=== PATIENT | male | born 1980 | race Hispanic/Latino ===

== ENCOUNTER 2020-09-14 18:11 | Emergency (ER) | payer SELFPAY ==
--- OUTSIDE RECORDS SUMMARY | 2020-09-14 18:14 | XMS REPORT | Continuity of Care Document ---
:1980 Author Organization [facility] t Address [address] [place] [address] Care Team Providers Name Role Phone Norma Kaur MD Attending Clinician Doctor Unassigned, Name Attending Clinician Unavailable Problems This patient has no known problems. Allergies, Adverse Reactions, Alerts This patient has no known allergies or adverse reactions. Medications This patient has no known medications. Procedures This patient has no known procedures. Encounters Start End Encounter Admission Attending Care Care Encounter Source Date/Time Date/Time Type Type Clinicians Facility Department ID 2020-07-16 2020-07-17 [facility] [id number] 22:15:00 00:30:00 Norma Grant [id number] [place] [id number] [place] [id number] 2020-07-16 2020-07-16 Orders Doctor WHITAKER [id number] 00:00:00 00:00:00 Only Unassigned, MARCELINA [id number] [place] [facility] [id number] 2020-01-24 2020-01-24 Emergency [facility] [id number] 01:05:00 04:06:00 Norma Bee [place] [id number] [place] [id number] [place] [id number] Results This patient has no known results.
[2020-09-14 19:14] LABS: Absolute Lymphocytes (CBC) 1.6 K/uL (0.7-4.9); Basophils % 0.7 % (0-1.3); Hematocrit 41.8 % (39.6-49.0); Lymphocytes % 33.6 % (15.3-44.8); MPV 7.8 fL (7.6-11.3); Protime INR 1.04; RBC Red Blood Cell Count 4.69 M/uL (4.33-5.43)
[2020-09-14 19:27] LABS: ALT/SGPT 68 U/L (12-78); AST/SGOT 36 U/L (15-37); Albumin 3.9 g/dL (3.4-5.0); Alkaline Phosphatase 62 U/L (45-117); BUN Blood Urea Nitrogen 7 mg/dL (7-18); Bicarbonate 27 mmol/L (21-32); Bilirubin Direct 0.2 mg/dL (0-0.2); Bilirubin Total 0.6 mg/dL (0.2-1.0); Glucose Level 91 mg/dL (74-106); Magnesium 2.1 mg/dL (1.8-2.4); NT PRO-BNP 115 pg/mL (<125); Potassium 3.1 mmol/L (3.5-5.1); Protein, Total 7.4 g/dL (6.4-8.2); Sodium Level 141 mmol/L (136-145); Troponin (Emerg Dept Use Only) < 0.02 ng/mL (0.0-0.045)
--- NOTE | 2020-09-14 19:31 | RAD REPORT ---
EXAM DESCRIPTION: RAD - Chest Single View - 09/14/2020 7:17 pm CLINICAL HISTORY: CHEST PAIN COMPARISON: None TECHNIQUE: AP portable chest image was obtained 09/14/2020 7:17 pm . FINDINGS: Lungs are clear. Heart and vasculature are normal. No measurable pleural effusion and no p neumothorax. No acute bony abnormality seen. No acute aortic findings suspected. IMPRESSION: No acute cardiopulmonary process.
--- NOTE | 2020-09-14 21:13 | RAD REPORT ---
EXAM DESCRIPTION: CT - Chest For Pe Angio - 09/14/2020 8:47 pm CLINICAL HISTORY: CHEST PAIN COMPARISON: Chest Single View dated 09/14/2020 TECHNIQUE: Dynamically enhanced 3 mm thick images of the chest were obtained during administration o f approximately 150mL Isovue 370 IV contrast. Coronal and oblique MIP reconstruction images were gene rated and reviewed. Exam utilizes a protocol to evaluate the pulmonary arterial tree. All CT scans are performed using dose optimization technique as appropriate and may include automated exposure control or mA/KV adjustment according to patient size. FINDINGS: No pulmonary emboli are identified. The aorta as imaged shows no acute or suspicious finding. No pericardial thickening or effusion. No infiltrate or mass in the lung parenchyma. No pleural effusion or pleural thickening. No mediastinal or hilar suspicious masses. No chest wall masses or abnormal axillary lymphadenopathy. IMPRESSION: No pulmonary emboli identified. No other significant or suspicious findings.
[2020-09-14] MEDS ORDERED: ONDANSETRON 4 MG/2 ML VIAL ONE (21:17)
[2020-09-14] MEDS ORDERED: MORPHINE 4 MG/ML SYR ONE (21:17)
[2020-09-14] MEDS ORDERED: KETOROLAC 30 MG/ML INJ ONE (23:22)
[2020-09-14] MEDS ORDERED: MAGNES/ALUMIN/SIMET 30ML UCUP ONE (23:26)
[2020-09-14] MEDS ORDERED: LIDOCAINE VISCOUS 2% SOLN 15 ML UDC ONE (23:26)
[2020-09-15] MEDS ORDERED: DIAZEPAM 10 MG/2 ML INJ SYRINGE ONE (00:14)
[2020-09-15] MEDS ORDERED: dexAMETHasone 4 MG/ML VIAL ONE (01:36)
--- NOTE | 2020-09-15 08:00 | EKG ---
Test Date: 2020-09-14 Test Time: 19:03:47 Sonography Technician: AMBROSE MEASUREMENT RESULTS: Intervals: Rate: 77 IA: 152 QRSD: 86 QT: 364 QTc: 411 [place]: P: 40 IA: 152 QRS: 42 T: 22 INTERPRETIVE STATEMENTS: Normal sinus rhythm Nonspecific T wave abnormality Abnormal ECG No previous ECG available for comparison Electronically Signed On 09-15-20 07:57:42 CDT by Anthony Kumar
--- NOTE | 2020-09-15 12:38 | EKG ---
Test Date: 2020-09-14 Test Time: 23:03:20 Manager Of Data: LEROY MEASUREMENT RESULTS: Intervals: Rate: 76 HI: 152 QRSD: 86 QT: 376 QTc: 423 [place]: P: 51 HI: 152 QRS: 87 T: 27 INTERPRETIVE STATEMENTS: Normal sinus rhythm Nonspecific T wave abnormality Abnormal ECG Compared to ECG 09/14/2020 19:03:47 No significant changes Electronically Signed On 09-15-20 12:37:34 CDT by Anthony Kumar
--- NOTE | 2020-09-15 17:47 | ER ---
Nurse's Notes [facility] Name: Balta Mtz Age: 39 yrs Sex: Male : 1980 Arrival Date: 09/14/2020 Time: 18:14 Bed 30 Private MD: Diagnosis: Chest pain, unspecified Presentation: 09/14 18:16 Chief complaint: Patient states: CP starting at 06:00 while pt was lying in bed. Pt kg stated that he was up all night tattooing and drinking and started having chest pain and it went away slightly then came back. Pt stated he has not been asleep yet. Coronavirus screen: Client denies travel out of the [place] in the last 14 days. At this time, unable to obtain information related to travel outside the [place] At this time, the client does not indicate any symptoms associated with coronavirus-19. Ebola Screen: Patient negative for fever greater than or equal to 101.5 degrees Fahrenheit, and additional compatible Ebola Virus Disease symptoms Patient denies exposure to infectious person. Patient denies travel to an Ebola-affected area in the 21 days before illness onset. Initial Sepsis Screen: Does the patient meet any 2 criteria? No. Patient's initial sepsis screen is negative. Does the patient have a suspected source of infection? No. Patient's initial sepsis screen is negative. Risk Assessment: Do you want to hurt yourself or someone else? Patient reports no desire to harm self or others. Onset of symptoms was September 14, 2020 at 06:00. 18:16 Method Of Arrival: Ambulatory kg 18:16 Acuity: GUILLERMINA 3 kg Triage Assessment: 18:19 General: Appears in no apparent distress. Behavior is calm, cooperative, appropriate kg for age, quiet. Pain: Complains of pain in chest Pain radiates to epigastric, left arm, left back Pain Quality of pain is described as burning, aching. Cardiovascular: Heart tones S1 S2 Chest pain is described as diffuse, Pain is 8 out of 10 on a pain scale. quality is burning. Historical: - Allergies: 18:19 No Known Allergies; kg - Home Meds: 18:19 None [Active]; kg - PMHx: 18:19 Anxiety; kg - PSHx: 18:19 back sx; kg - Immunization history:: Adult Immunizations not up to date, Client reports having NOT received the Covid vaccine. - Social history:: Smoking status: Patient denies any tobacco usage or history of. Patient uses alcohol, weekly. Patient uses street drugs, cocaine, Methamphetamine (Meth). Screenin:46 Abuse screen: Denies threats or abuse. Denies injuries from another. Nutritional ld1 screening: No deficits noted. Tuberculosis screening: No symptoms or risk factors identified. Fall Risk None identified. Assessment: 18:46 General: Appears in no apparent distress. comfortable, Behavior is calm, cooperative, ld1 appropriate for age. Pain: Complains of pain in chest Pain does not radiate. Pain currently is 8 out of 10 on a pain scale. Quality of pain is described as throbbing, Pain began 4 hours ago. Is continuous. Neuro: Level of Consciousness is awake, alert, obeys commands, Oriented to person, place, time, situation. Cardiovascular: Capillary refill < 3 seconds Patient's skin is warm and dry. Rhythm is sinus rhythm. Respiratory: Airway is patent Respiratory effort is even, unlabored, Respiratory pattern is regular, symmetrical. GI: Abdomen is flat, non-distended. : No signs and/or symptoms were reported regarding the genitourinary system. EENT: No signs and/or symptoms were reported regarding the EENT system. Derm: No signs and/or symptoms reported regarding the dermatologic system. Musculoskeletal: No signs and/or symptoms reported regarding the musculoskeletal system. 20:36 Reassessment: Patient appears in no apparent distress at this time. No changes from ld1 previously documented assessment. Patient and/or family updated on plan of care and expected duration. Pain level reassessed. Patient is alert, oriented x 3, equal unlabored respirations, skin warm/dry/pink. 21:39 Reassessment: Patient appears in no apparent distress at this time. No changes from ld1 previously documented assessment. Patient and/or family updated on plan of care and expected duration. Pain level reassessed. Patient is alert, oriented x 3, equal unlabored respirations, skin warm/dry/pink. 23:07 Reassessment: Patient appears in no apparent distress at this time. Patient and/or ld1 family updated on plan of care and expected duration. Pain level reassessed. Patient is alert, oriented x 3, equal unlabored respirations, skin warm/dry/pink. Vital Signs: 18:16 BP 138 / 101; Pulse 92; Resp 20; Temp 98.1(TE); Pulse Ox 100% on R/A; Weight 87.09 kg kg (M); Height 5 ft. 9 in. (175.26 cm); Pain 8/10; 18:46 BP 146 / 100; Pulse 79; Resp 15; Pulse Ox 100% on R/A; ld1 20:36 BP 144 / 96; Pulse 80; Resp 25; Pulse Ox 100% on R/A; ld1 21:39 BP 146 / 89; Pulse 82; Resp 18; Pulse Ox 100% on R/A; ld1 23:07 BP 138 / 88; Pulse 78; Resp 18; Pulse Ox 100% ; ld1 18:16 Body Mass Index 28.35 (87.09 kg, 175.26 cm) kg ED Course: 18:14 Patient arrived in ED. mr 18:19 Triage completed. kg 18:22 Josh Dela Cruz PA is PHCP. [facility] 18:23 Tim Adam MD is Attending Physician. [facility] 18:28 Lo Gan, FERNY is Primary Nurse. ld1 18:46 Patient has correct armband on for positive identification. Bed in low position. Call ld1 light in reach. Side rails up X2. front end software developer on. Pulse ox on. NIBP on. 18:46 No provider procedures requiring assistance completed. ld1 19:06 Inserted saline lock: 20 gauge in right antecubital area, using aseptic technique. ld1 Blood collected. Patient maintains SpO2 saturation greater than 95% on room air. 19:17 XRAY Chest (1 view) In Process Unspecified. EDMS 20:47 CT Chest For PE Angio In Process Unspecified. EDMS 09/15 00:58 Jovani Mcrae MD is Referral Physician. jm 01:23 IV discontinued, intact, bleeding controlled, No redness/swelling at site. Pressure em dressing applied. Administered Medications: 09/14 21:03 Drug: morphine 4 mg Route: IVP; Site: right antecubital; ld1 21:03 Follow up: Response: No adverse reaction ld1 21:03 Drug: Zofran (Ondansetron) 4 mg Route: IVP; Site: right antecubital; ld1 21:03 Follow up: Response: No adverse reaction ld1 23:02 Drug: Ketorolac 30 mg Route: IVP; Site: right antecubital; ld1 23:07 Follow up: Response: No adverse reaction ld1 23:06 Drug: GI Cocktail without - (Maalox Suspension 30 ml, Lidocaine Liquid 2 % 15 ld1 ml) Route: PO; 23:07 Follow up: Response: No adverse reaction ld1 23:57 Drug: Valium (diazepam) 5 mg Route: IVP; Site: right antecubital; ld1 23:57 Follow up: Response: No adverse reaction ld1 09/15 01:20 Drug: Decadron - Dexamethasone 10 mg Route: IVP; Site: right antecubital; em 01:24 Follow up: Response: Medication administered at discharge. em Outcome: 00:58 Discharge ordered by . brennan 01:22 Discharged to home ambulatory, with family. em 01:22 Condition: stable 01:22 Discharge instructions given to patient, Instructed on discharge instructions, follow up and referral plans. medication usage, Demonstrated understanding of instructions, follow-up care, medications, Prescriptions given X 1. 01:42 Patient left the ED. mw2 Signatures: Dispatcher [employer] EDMS Josh Dela Cruz PA PA Hazel Manuel mr Kem Pruitt RN RN Leida Wallace mw2 Lo Gan RN RN ld1 Cinda Cruz RN RN kg
--- NOTE | 2020-09-15 17:47 | EDPHYS ---
Physician Documentation [facility] Name: Balta Mtz Age: 39 yrs Sex: Male : 1980 Arrival Date: 09/14/2020 Time: 18:14 Bed 30 Private MD: ED Physician Tim Adam HPI: 09/14 18:45 This 39 yrs old Male presents to ER via Ambulatory with complaints of Chest jmm Pain. 18:45 The patient or guardian reports chest pain that is located primarily in the substernal m area. Onset: gradually, at 06:00. The pain does not radiate. Associated signs and symptoms: Pertinent positives:. The chest pain is described as aching, a pressure, sharp. This is a 39-year-old male with a history of anxiety that presents emerged part with complaints of chest pain, chest pressure worsening with deep inspiration. Symptoms began at 6 AM and have been constant since per patient. Patient states having a family history of coronary artery disease. Patient does not smoke but drinks alcohol regularly.. Historical: - Allergies: 18:19 No Known Allergies; kg - Home Meds: 18:19 None [Active]; kg - PMHx: 18:19 Anxiety; kg - PSHx: 18:19 back sx; kg - Immunization history:: Adult Immunizations not up to date, Client reports having NOT received the Covid vaccine. - Social history:: Smoking status: Patient denies any tobacco usage or history of. Patient uses alcohol, weekly. Patient uses street drugs, cocaine, Methamphetamine (Meth). ROS: 18:45 Constitutional: Negative for fever, chills, and weight loss. jmm 18:45 Cardiovascular: Positive for chest pain. 18:45 All other systems are negative. Exam: 18:45 Head/Face: atraumatic. Eyes: EOMI, no conjunctival erythema appreciated ENT: Moist jmm Mucus Membranes Neck: Trachea midline, Supple Chest/axilla: Normal chest wall appearance and motion. Cardiovascular: Regular rate and rhythm. No edema appreciated Respiratory: Normal respirations, no respiratory distress appreciated Abdomen/GI: Non distended, soft Back: Normal ROM 18:45 Skin: General appearance color normal MS/ Extremity: Moves all extremities, no obvious deformities appreciated, no edema noted to the lower extremities Neuro: Awake and alert, normal gait Psych: Behavior is normal, Mood is normal, Patient is cooperative and pleasant 18:45 Constitutional: The patient appears alert, awake, anxious, uncomfortable. 18:45 Cardiovascular: Rate: normal, Rhythm: regular. Vital Signs: 18:16 BP 138 / 101; Pulse 92; Resp 20; Temp 98.1(TE); Pulse Ox 100% on R/A; Weight 87.09 kg kg (M); Height 5 ft. 9 in. (175.26 cm); Pain 8/10; 18:46 BP 146 / 100; Pulse 79; Resp 15; Pulse Ox 100% on R/A; ld1 20:36 BP 144 / 96; Pulse 80; Resp 25; Pulse Ox 100% on R/A; ld1 21:39 BP 146 / 89; Pulse 82; Resp 18; Pulse Ox 100% on R/A; ld1 23:07 BP 138 / 88; Pulse 78; Resp 18; Pulse Ox 100% ; ld1 18:16 Body Mass Index 28.35 (87.09 kg, 175.26 cm) kg MDM: 19:13 Patient medically screened. [facility] 09/15 00:56 Data reviewed: vital signs, nurses notes. Counseling: I had a detailed discussion with [facility] the patient and/or guardian regarding: the historical points, exam findings, and any diagnostic results supporting the discharge/admit diagnosis, lab results, radiology results, the need for outpatient follow up, to return to the emergency department if symptoms worsen or persist or if there are any questions or concerns that arise at home. ED course: Cardiac enzymes are negative after constant pain for over 12 hours. CTA negative for PE. Pulses equal I do not suspect dissection. Patient's pain was alleviated mainly with IV Valium. Patient declined admission for observation. Patient is otherwise given strict return precautions. Patient understood and agrees with plan of care.. 09/14 18:45 Order name: Basic Metabolic Panel; Complete Time: 19:33 [facility] 09/14 18:45 Order name: CBC with Diff; Complete Time: 19:23 [facility] 09/14 18:45 Order name: LFT's; Complete Time: 19:33 [facility] 09/14 18:45 Order name: Magnesium; Complete Time: 19:33 [facility] 09/14 18:45 Order name: NT PRO-BNP; Complete Time: 19:33 [facility] 09/14 18:45 Order name: PT-INR; Complete Time: 19:23 [facility] 09/14 18:45 Order name: Troponin (emerg Dept Use Only); Complete Time: 19:33 [facility] 09/14 18:45 Order name: XRAY Chest (1 view); Complete Time: 19:33 [facility] 09/14 20:27 Order name: CT Chest For PE Angio; Complete Time: 21:14 [facility] 09/14 22:42 Order name: Troponin (emerg Dept Use Only); Complete Time: 23:38 [facility] 09/14 18:45 Order name: EKG; Complete Time: 18:46 [facility] 09/14 18:45 Order name: Cardiac monitoring; Complete Time: 18:45 [facility] 09/14 18:45 Order name: EKG - Nurse/Tech; Complete Time: 19:05 [facility] 09/14 18:45 Order name: IV Saline Lock; Complete Time: 19:05 [facility] 09/14 18:45 Order name: Labs collected and sent; Complete Time: 19:05 [facility] 09/14 18:45 Order name: O2 Per Protocol; Complete Time: 18:45 [facility] 09/14 18:45 Order name: O2 Sat Monitoring; Complete Time: 18:45 [facility] 09/14 22:56 Order name: EKG - Nurse/Tech; Complete Time: 23:02 [facility] Administered Medications: 09/14 21:03 Drug: morphine 4 mg Route: IVP; Site: right antecubital; ld1 21:03 Follow up: Response: No adverse reaction ld1 21:03 Drug: Zofran (Ondansetron) 4 mg Route: IVP; Site: right antecubital; ld1 21:03 Follow up: Response: No adverse reaction ld1 23:02 Drug: Ketorolac 30 mg Route: IVP; Site: right antecubital; ld1 23:07 Follow up: Response: No adverse reaction ld1 23:06 Drug: GI Cocktail without - (Maalox Suspension 30 ml, Lidocaine Liquid 2 % 15 ld1 ml) Route: PO; 23:07 Follow up: Response: No adverse reaction ld1 23:57 Drug: Valium (diazepam) 5 mg Route: IVP; Site: right antecubital; ld1 23:57 Follow up: Response: No adverse reaction 09/15 01:20 Drug: Decadron - Dexamethasone 10 mg Route: IVP; Site: right antecubital; em 01:24 Follow up: Response: Medication administered at discharge. em Disposition: 06:04 Co-signature as Attending Physician, Tim Adam MD. rn Disposition Summary: 09/15/20 00:58 Discharge Ordered Location: Home [facility] Condition: Stable jmm Diagnosis - Chest pain, unspecified jmm Followup: [facility] - With: Jovani Mcrae MD - When: 2 - 3 days - Reason: Recheck today's complaints, Continuance of care, Re-evaluation by your physician Discharge Instructions: - Discharge Summary Sheet [facility] - Nonspecific Chest Pain, Adult [facility] Forms: - Medication Reconciliation Form [facility] - Thank You Letter [facility] - Antibiotic Education [facility] - Prescription Opioid Use [facility] Prescriptions: - orphenadrine citrate 100 mg Oral Tablet Sustained Release - take 1 tablet by ORAL route 2 times per day As needed; 20 tablet; Refills: 0, [facility] Product Selection Permitted Signatures: Dispatcher [employer] Josh Thurman PA PA jmm Munoz, Edgar, RN RN em Tim Adam MD MD rn Dibbern, Lauren RN RN ld1 Cinda Cruz RN RN kg
[2020-09-16 16:57] VITALS: TEMP 98.1; O2SAT 100
[2020-09-16 17:04] VITALS: BP 138/88
== END 2020-09-15 01:42 | disposition home or self-care (01) ==
LOC: ER 18:11
DX: R07.9 Chest pain, unspecified (principal); F41.9 Anxiety disorder, unspecified; Z82.49 Family history of ischemic heart disease and other diseases of the circulatory system
CPT/HCPCS: 36415; 71045; 71275; 80048; 80076; 83735; 83880; 84484; 85025; 85610; 93005; J1100; J2405; Q9967

== ENCOUNTER 2024-04-22 02:04 | Emergency (ER) | payer SELFPAY ==
--- OUTSIDE RECORDS SUMMARY | 2024-04-22 02:09 | XMS REPORT | Continuity of Care Document ---
Author Name Unknown Address [address] [facility] [address] [place] [address] [facility] thconnect Address [address] [facility] [address] [place] [address] Care Team Providers Care Tax Staff Accountant Name Role Phone PCP, PATIENT DOES NOT HAVE A Primary Care Physic stepan Unavailable Norma Hoffman MD Attending Clinician NORMA HOFFMAN Attending Clinician Unavailable Doctor Unassigned, Merlin Attending Clinician U navailable NORMA HOFFMAN Admitting Clinician Unavailable Allergies, Adverse Reactions, Alerts Allergy Name Allergy Type Status Severity Reaction(s) Onset Date Inactive Date Treating Clinician Comments Source NO KNOWN ALLERGIE S Drug Class Active [facility] Social History Social Habit Start Date Stop Date Quantity Comments Source Exposure to SARS-CoV-2 (event) Not sure [facility] Sex Assigned At 1980 00:00:00 1980 00:00:00 [facility] Smoking Status Start Date Stop Date Source Unknown if ever smoked [facility] Vital Signs Vital Name Observation Time Observation Value Comments S carla Systolic blood pressure 2020-07-17 05:00:00 114 mm[Hg] [facility] Diastolic blood pressure 2020-07-17 05:00:00 74 mm[Hg] [facility] Heart rate 2020-07-17 05:00:00 78 /min [facility] Respiratory rate 2020-07-17 05:00:00 21 /min [facility] Oxygen saturation in Arterial blood by Pulse oximetry 2020-07-17 05:00:00 98 /min [facility] Body temperature 2020-07-17 03:19:00 36.67 Erum [facility] Body height 2020-07-17 03:19:00 175.3 cm [facility] Body weight 2020-07-17 03:19:00 90.719 kg [facility] BMI 2020-07-17 03:19:00 29.53 kg/m2 [facility] Systolic blood pressure 2020-07-17 05:00:00 114 mm[Hg] [facility] Diastolic blood pressure 2020-07-17 05:00:00 74 mm[Hg] [facility] Heart rate 2020-07-17 05:00:00 78 /min [facility] Respiratory rate 2020-07-17 05:00:00 21 /min [facility] Oxygen saturation in Arterial blood by Pulse oximetry 2020-07-17 05:00:00 98 /min [facility] Body temperature 2020-07-17 03:19:00 36.67 Erum [facility] Body height 2020-07-17 03:19:00 175.3 cm [facility] Body weight 2020-07-17 03:19:00 90.719 kg [facility] BMI 2020-07-17 03:19:00 29.53 kg/m2 [facility] Systolic blood pressure 2020-01-24 09:00:00 116 mm[Hg] [facility] Diastolic blood pressure 2020-01-24 09:00:00 75 mm[Hg] [facility] Heart rate 2020-01-24 09:00:00 52 [facility] 2020-01-24 09:00:00 16 /min [facility] Oxygen saturation in Arterial blood by Pulse oximetry 2020-01-24 09:00:00 98 /min [facility] Body temperature 2020-01-24 07:10:00 37.22 Erum [facility] Body height 2020-01-24 07:10:00 175.3 cm [facility] Body weight 2020-01-24 07:10:00 90.719 kg [facility] BMI 2020-01-24 07:10:00 29.53 kg/m2 [facility] Systolic blood pressure 2020-01-24 09:00:00 116 mm[Hg] [facility] Diastolic blood pressure 2020-01-24 09:00:00 75 mm[Hg] [facility] Heart rate 2020-01-24 09:00:00 52 /min [facility] Respiratory rate 2020-01-24 09:00:00 16 /min [facility] Oxygen saturation in Arterial blood by Pulse oximetry 2020-01-24 09:00:00 98 /min [facility] Body temperature 2020-01-24 07:10:00 37.22 E[place] [facility] Body height 2020-01-24 07:10:00 175.3 cm [facility] Body weight 2020-01-24 07:10:00 90.719 kg [facility] BMI 2020-01-24 07:10:00 29.53 kg/m2 [facility] Procedures Procedure Date / Time Performed Performing Clinicia n Source XR CHEST 1 VW 2020-07-17 03:41:09 Norma Hoffman [facility] LIPASE 2020-07-17 03:31:00 Norma Hoffman [facility] TROPONIN I 2020-07-17 03:31:00 Norma Hoffman [facility] COMP. METABOLIC PANEL ([id number]) 2020-07-17 03:31:00 Norma Hoffman [facility] CBC WITH DIFF 2020-07-17 03:31:00 Norma Hoffman [facility] CONSENT/REFUSAL FOR DIAGNOSIS AND TREATMENT 2020-07-17 03:11:05 Doctor Unassigned, Merlin [facility] NOTICE OF PRIVACY PRACTICES 2020-07-17 03:10:49 Doctor Unassigned, Merlin [facility] TROPONIN I 2020-01-24 09:01:00 Norma Hoffman [facility] XR CHEST 1 VW 2020-01-24 07:43:35 Norma Hoffman [facility] LIPASE 2020-01-24 07:27:00 Norma Hoffman [facility] TROPONIN I 2020-01-24 [facility]OLIC [facility] ([id number]) 2020-01-24 07:27:00 Norma Hoffman [facility] CBC WITH DIFF 2020-01-24 07:27:00 Norma Hoffman [facility] Encounters Start Date/Time End Date/Time Encounter Type Admission Type Attending Clinicians Care Facility Care Department Encounter ID Source 2020-07-16 22:15:00 2020-07-17 00:30:00 Emergency Norma Hoffman [facility] [id number] [facility] 2020-07-16 22:15:00 2020-07-17 00:30:00 Emergency X NORMA HOFFMAN [facility] ERT [id number] [facility] 2020-07-16 22:15:00 2020-07-17 00:30:00 Emergency Norma Hoffman [facility] [id number] [id number] 2020-07-16 00:00:00 2020-07-16 00:00:00 Orders Only Doctor Unassigned, Merlin [facility] [id number] [id number] [facility] 2020-07-16 00:00:00 2020-07-16 00:00:00 Orders Only Doctor Unassigned, Merlin [facility] [id number] [id number] 4.2.7.2.686 [id number] 2020-01-24 01:05:00 2020-01-24 04:06:00 Emergency Norma Hoffman [facility] [id number] [id number] [facility] 2020-01-24 01:05:00 2020-01-24 04:06:00 Emergency X NORMA HOFFMAN [facility] ERT [id number] [facility] 2020-01-24 01:05:00 2020-01-24 04:06:00 [facility] [id number] [id number] [id number] Results Test Description Test Time Test Comments Results Result Co mments Source [facility] ([id number][facility]2020-07-17 03:53:29* Test Item Value Reference Range Interpretation Comme nts NA (test code = 8156543268) 138 mmol/L 135-145 K (test code = 0072707111) 3.9 mmol/L 3.5-5.0 CL (test code = 2537552732) 105 mmol/L 98-108 CO2 TOTAL (test code = 0402040506) 24 mmol/L 23-31 AGAP (test code = 4721202475) 2-16 BUN (test code = 0179191800) 14 mg/dL 7-23 GLUCOSE (test code = 3561868407) 114 mg/dL 70-110 H CREATININE (test code = 9120335851) 1.10 mg/dL 0.60-1.25 TOTAL BILI (test code = 3906663024) 0.5 mg/dL 0.1-1.1 CALCIUM (test code = 6259480530) 8.6 mg/dL 8.6-10.6 T PROTEIN (test code = 9371611214) 7.4 g/dL 6.3-8.2 ALBUMIN (test code = 8908120759) 4.3 g/dL 3.5-5.0 ALK PHOS (test code = 5931094095) 80 U/L 34-122 ALTv (test code = 1742-6) 36 U/L 5-50 AST(SGOT) (test code = 8899046100) 38 U/L 13-40 eGFR (test code = 7632574539) mL/min/1.73m2 CARISA (test code = CARISA) Association of Glomerular Filtration Rate (GFR) and Staging of Kidney Disease* + --+ --+ ------+| GFR (mL/min/1.73 m2) ?| With Kidney Damage ?| ?Without Kidney Damage+ --------+ --------+ +| ?>90 ?| ?Stage one ?| ? Normal ?+ ---+ ---+ -------+| ?60-89 ?| ?Stage two ?| ? Decreased GFR ? + --+ --+ ------+| ?30-59 ?| ?Stage three ?| ? Stage three ? + --+ --+ ------+| ?15-29 ?| ?Stage four ? | ? Stage four ?+ ---+ ---+ -------+| ?<15 (or dialysis) ? ?| ?Stage five ? | ? Stage five ?+ ---+ ---+ -------+ *Each stage assumes the associated GFR level has been in effect for at least three months. ?Stages 1 to 5, with or without kidney disease, indicate chronic kidney disease. Notes: Determination of stages one and two (with eGFR >59mL/min/1.73 m2) requires estimation of kidney damage for at least three months as defined by structural or functional abnormalities of the kidney, manifested by either:Pathological abnormalities or Markers of kidney damage (including abnormalities in the composition of the blood or urine or abnormalities in imaging tests). Lab Interpretation (test code = 81593-1) [id number] 03:52:49* Test Item Value Reference Range Interpretation Comme nts LIPASE (test code = 3940072409) 99 U/L 0-220 Lab Interpretation (test cod e = 80804-4) [facility] [id number] 03:41:26* Test Item Value Reference Range Interpretation Comme nts WBC (test code = 6690-2) See_Comment [Automated messa ge] The system which generated this result transmitted reference range: 4.20 - 10.70 10*3/?L. The reference range was not used to interpret this result as normal/abnormal. RBC (test code = 789-8) See_Comment [Automated [employer]] The system which generated this result transmitted reference range: 4.26 - 5.52 10*6/?L. The reference range was not used to interpret this result as normal/abnormal. HGB (test code = 718-7) 14.3 g/dL 12.2-16.4 HCT (test code = 4544-3) 41.0 % 38.4-49.3 MCV (test code = 787-2) 87.8 fL 81.7-95.6 MCH (test code = 785-6) 30.6 pg 26.1-32.7 MCHC (test code = 786-4) 34.9 g/dL 31.2-35.0 RDW-SD (test code = 25001-6) 37.9 fL 38.5-51.6 L RDW-CV (test code = 788-0) 11.9 % 12.1-15.4 L PLT (test code = 777-3) See_Comment [Automated [employer]] The system which generated this result transmitted reference range: 150 - 328 10*3/?L. The reference range was not used to interpret this result as normal/abnormal. MPV (test code = 40666-9) 10.0 fL 9.8-13.0 NRBC/100 WBC (test code = 4173558495) See_Comment [Automated [employer] ssage] The system which generated this result transmitted reference range: 0.0 - 10.0 /100 WBCs. The reference range was not used to interpret this result as normal/abnormal. NRBC x10^3 (test code = 6303860377) <0.01 See_Comment [Automated [employer]] The system which generated this result transmitted reference range: 10*3/?L. The reference range was not used to interpret this result as normal/abnormal. GRAN MAT (NEUT) % (test code = 770-8) 57.2 % IMM GRAN % (test code = 4825831577) 0.20 % LYMPH % (test code = 736-9) 28.4 % MONO % (test code = 5905-5) 9.2 % EOS % (test code = 713-8) 4.1 % BASO % (test code = 706-2) 0.9 % GRAN MAT x10^3(ANC) (test code = 6961596592) 3.22 10*3/uL 1.99-6.95 IMM GRAN x10^3 (test code = 1468335133) <0.03 0.00-0.06 LYMPH x10^3 (test code = 731-0) 1.60 10*3/uL 1.09-3.23 MONO x10^3 (test code = 742-7) 0.52 10*3/uL 0.36-1.02 EOS x10^3 (test code = 711-2) 0.23 10*3/uL 0.06-0.53 BASO x10^3 (test code = 704-7) 0.05 10*3/uL 0.01-0.09 Lab Interpretation (test code = 26354-4) Abnormal [facility] [id number] 09:54:00* Test Item Value Reference Range Interpretation Comme nts TROPONIN I (test code = 0852999879) <0.012 See_Comment [Automated message] The system which generated this result transmitted reference range: <=0.034 ng/mL. The reference range was not used to interpret this result as normal/abnormal. CARISA (test code = CARISA) Equal or Less than 0.034 ng/ml---Normal ?Note: Cardiac troponin begins to rise 3-4 hours after the onset of ischemia. Repeat in 4-6 hours if the sample was drawn within 3-4 hours of the onset of the symptom and found normal. Between 0.035 and 0.120 ng/mL--- Borderline. Questionable myocardial injury or necrosis ? ?Note: Serial measurement may be necessary to confirm or exclude the diagnosis of myocardial injury or necrosis; Clinical correlation (symptoms, EKGs, imaging studies, and others) required; Repeat in 4-6 hours if clinically indicated. ? Equal or Higher than 0.121 ng/mL---Abnormal. Myocardial Injury or Necrosis Likely ? Biotin has been reported to cause a negative bias, interpret results relative to patient's use of biotin. ? Lab Interpretation (test code = 13416-6) [facility] [id number] 08:00:00* Test Item Value Reference Range Interpretation Comme nts TROPONIN I (test code = 3065367447) <0.012 See_Comment [Automated message] The system which generated this result transmitted reference range: <=0.034 ng/mL. The reference range was not used to interpret this result as normal/abnormal. CARISA (test code = CARISA) Equal or Less than 0.034 ng/ml---Normal ?Note: Cardiac troponin begins to rise 3-4 hours after the onset of ischemia. Repeat in 4-6 hours if the sample was drawn within 3-4 hours of the onset of the symptom and found normal. Between 0.035 and 0.120 ng/mL--- Borderline. Questionable myocardial injury or necrosis ? ?Note: Serial measurement may be necessary to confirm or exclude the diagnosis of myocardial injury or necrosis; Clinical correlation (symptoms, EKGs, imaging studies, and others) required; Repeat in 4-6 hours if clinically indicated. ? Equal or Higher than 0.121 ng/mL---Abnormal. Myocardial Injury or Necrosis Likely ? Biotin has been reported to cause a negative bias, interpret results relative to patient's use of biotin. ? Lab Interpretation (test code = 11407-4) [facility] (32580[facility]2020-01-24 07:50:00* Test Item Value Reference Range Interpretation Comme nts NA (test code = 7954609859) 135 mmol/L 135-145 K (test code = 3709146280) 3.9 mmol/L 3.5-5 CL (test code = 9700939035) 102 mmol/L 98-108 CO2 TOTAL (test code = 3199450327) 28 mmol/L 23-31 AGAP (test code = 9865987585) 2-16 BUN (test code = 5029063919) 20 mg/dL 7-23 GLUCOSE (test code = 5373857349) 124 mg/dL 70-110 H CREATININE (test code = 2793407697) 1.01 mg/dL 0.6-1.25 TOTAL BILI (test code = 5396230002) 0.4 mg/dL 0.1-1.1 CALCIUM (test code = 6364451651) 8.8 mg/dL 8.6-10.6 T PROTEIN (test code = 2228906835) 7.0 g/dL 6.3-8.2 ALBUMIN (test code = 4307528101) 4.0 g/dL 3.5-5 ALK PHOS (test code = 6000761931) 96 U/L 34-122 ALTv (test code = 1742-6) 55 U/L 5-50 H AST(SGOT) (test code = 8743101604) 41 U/L 13-40 H eGFR Calculation (Non-) (test code = 5503540269) mL/min/1.73m2 eGFR Calculation () (test code = 2889941492) mL/min/1.73m2 CARISA (test code = CARISA) Association of Glomerular Filtration Rate (GFR) and Staging of Kidney Disease* + --+ --+ ------+| GFR (mL/min/1.73 m2) ?| With Kidney Damage ?| ?Without Kidney Damage+ --------+ --------+ +| ?>90 ?| ?Stage one ?| ? Normal ?+ ---+ ---+ -------+| ?60-89 ?| ?Stage two ?| ? Decreased GFR ? + --+ --+ ------+| ?30-59 ?| ?Stage three ?| ? Stage three ? + --+ --+ ------+| ?15-29 ?| ?Stage four ? | ? Stage four ?+ ---+ ---+ -------+| ?<15 (or dialysis) ? ?| ?Stage five ? | ? Stage five ?+ ---+ ---+ -------+ *Each stage assumes the associated GFR level has been in effect for at least three months. ?Stages 1 to 5, with or without kidney disease, indicate chronic kidney disease. Notes: Determination of stages one and two (with eGFR >59mL/min/1.73 m2) requires estimation of kidney damage for at least three months as defined by structural or functional abnormalities of the kidney, manifested by either:Pathological abnormalities or Markers of kidney damage (including abnormalities in the composition of the blood or urine or abnormalities in imaging tests). Lab Interpretation (test code = 75181-8) [facility] 07:50:00* Test Item Value Reference Range Interpretation Comme nts LIPASE (test code = 6326963132) 113 U/L 0-220 Lab Interpretation (test cod e = 18257-3) [facility] [id number] 07:35:00* Test Item Value Reference Range Interpretation Comme nts WBC (test code = 6690-2) See_Comment [Automated [employer]] The system which generated this result transmitted reference range: 4.20 - 10.70 10*3/?L. The reference range was not used to interpret this result as normal/abnormal. RBC (test code = 789-8) See_Comment [Automated [employer]] The system which generated this result transmitted reference range: 4.26 - 5.52 10*6/?L. The reference range was not used to interpret this result as normal/abnormal. HGB (test code = 718-7) 14.1 g/dL 12.2-16.4 HCT (test code = 4544-3) 41.6 % 38.4-49.3 MCV (test code = 787-2) 89.8 fL 81.7-95.6 MCH (test code = 785-6) 30.5 pg 26.1-32.7 MCHC (test code = 786-4) 33.9 g/dL 31.2-35 RDW-SD (test code = 51369-4) 38.5 fL 38.5-51.6 RDW-CV (test code = 788-0) 11.9 % 12.1-15.4 L PLT (test code = 777-3) See_Comment [Automated [employer]] The system which generated this result transmitted reference range: 150 - 328 10*3/?L. The reference range was not used to interpret this result as normal/abnormal. MPV (test code = 95116-4) 10.0 fL 9.8-13 NRBC/100 WBC (test code = 2464941833) See_Comment [Automated me ssage] The system which generated this result transmitted reference range: 0.0 - 10.0 /100 WBCs. The reference range was not used to interpret this result as normal/abnormal. NRBC x10^3 (test code = 0773883038) <0.01 See_Comment [Automated messa ge] The system which generated this result transmitted reference range: 10*3/?L. The reference range was not used to interpret this result as normal/abnormal. GRAN MAT (NEUT) % (test code = 770-8) 64.3 % IMM GRAN % (test code = 8738576608) 0.70 % LYMPH % (test code = 736-9) 25.7 % MONO % (test code = 5905-5) 6.9 % EOS % (test code = 713-8) 1.7 % BASO % (test code = 706-2) 0.7 % GRAN MAT x10^3(ANC) (test code = 2099957293) 3.47 10*3/uL 1.99-6.95 IMM GRAN x10^3 (test code = 4865792187) 0.04 10*3/uL 0-0.06 LYMPH x10^3 (test code = 731-0) 1.39 10*3/uL 1.09-3.23 MONO x10^3 (test code = 742-7) 0.37 10*3/uL 0.36-1.02 EOS x10^3 (test code = 711-2) 0.09 10*3/uL 0.06-0.53 BASO x10^3 (test code = 704-7) 0.04 10*3/uL 0.01-0.09 Lab Interpretation (test code = 10269-3) Abnormal [facility]"
[2024-04-22] MEDS ORDERED: PANTOPRAZOLE 40 MG INJ ONE (02:37)
[2024-04-22] MEDS ORDERED: NA CHLORIDE 0.9% 1,000 ML ONE (02:37)
[2024-04-22 02:51] LABS: Absolute Lymphocytes (CBC) 0.7 K/uL (0.7-4.9); Absolute Monocytes 0.5 K/uL (0.1-1.3); Absolute Neutrophil 5.5 K/uL (1.8-8.0); Basophils % 0.2 % (0-1.3); Eosinophils % 0.7 % (0-4.4); Hematocrit 49.9 % (39.6-49.0); Hemoglobin 17.5 g/dL (13.6-17.9); Lymphocytes % 9.8 % (15.3-44.8); MCH 30.8 pg (27.0-35.0); MCHC 35.1 g/dL (32.0-36.0); MCV 87.9 fL (80-100); MPV 8.4 fL (7.6-11.3); Monocytes % 7.8 % (3.3-12.3); Neutrophils % 81.5 % (41.7-73.7); Nucleated Red Blood Cells % 0.1 % (0-0); Platelets 221 thou/uL (152-406); RBC Red Blood Cell Count 5.68 M/uL (4.33-5.43)
[2024-04-22 02:56] LABS: PT Prothrombin Time 11.7 SECONDS (10.0-13.0); PTT, Activated Partial Thromb 26.3 SECONDS (24.3-36.9); Protime INR 1.03
--- NOTE | 2024-04-22 03:54 | ER ---
Nurse's Notes [facility] Name: Balta Mtz Age: 43 yrs Sex: Male : 1980 Arrival Date: 04/22/2024 Time: 02:04 Bed 6 Private MD: Diagnosis: Upper GI bleed, coffee-ground emesis Presentation: 04/22 02:14 Chief complaint: Patient states: I have been feeling nauseous all day with heart burn, jb4 chest pain, diarrhea, and vomit appears to have coffee grounds in it. Coronavirus screen: At this time, the client does not indicate any symptoms associated with coronavirus-19. Ebola Screen: No symptoms or risks identified at this time. Initial Sepsis Screen: Does the patient meet any 2 criteria? HR > 90 bpm. Yes Does the patient have a suspected source of infection? No. Patient's initial sepsis screen is negative. Risk Assessment: Do you want to hurt yourself or someone else? Patient reports no desire to harm self or others. Onset of symptoms was April 22, 2024. Transition of care: patient was not received from another setting of care. 02:14 Method Of Arrival: Ambulatory jb4 02:14 Acuity: GUILLERMINA 3 jb4 Historical: - Allergies: 02:16 No Known Allergies; jb4 - PMHx: 02:16 Anxiety; seasonal allergies; jb4 - PSHx: 02:16 back sx; jb4 - Immunization history:: Adult Immunizations unknown. - Infectious Disease History:: Denies. - Social history:: Smoking status: Patient denies any tobacco usage or history of. Screenin:28 [facility] ED Fall Risk Assessment (Adult) History of falling in the last 3 months, bm8 including since admission No falls in past 3 months (0 pts) Confusion or Disorientation No (0 pts) Intoxicated or Sedated No (0 pts) Impaired Gait No (0 pts) Mobility Assist Device Used No (0 pt) Altered Elimination No (0 pt) Score/Fall Risk Level 0 - 2 = Low Risk Oriented to surroundings, Maintained a safe environment, Educated pt \T\ family on fall prevention, incl call for assistance when getting out of bed, Assessed \T\ reinforced patient's understanding of fall precautions, Hourly rounding (assess needs \T\ fall precautionary measures) done, Used ambulatory aids as needed (educated on \T\ assisted with), Used gait belt as appropriate. Abuse screen: Denies threats or abuse. Nutritional screening: No deficits noted. Tuberculosis screening: No symptoms or risk factors identified. Assessment: 02:28 General: Appears in no apparent distress. comfortable, Behavior is calm, cooperative, bm8 appropriate for age. Pain: Complains of pain in epigastric area Pain currently is 5 out of 10 on a pain scale. Quality of pain is described as burning, tightness. Neuro: No deficits noted. Level of Consciousness is awake, alert, obeys commands, Oriented to person, place, time, situation, Appropriate for age. Cardiovascular: Reports chest pain, Heart tones S1 S2 present Capillary refill < 3 seconds in bilateral fingers Patient's skin is warm and dry. Rhythm is sinus tachycardia. Respiratory: Airway is patent Trachea midline Respiratory effort is even, unlabored, Respiratory pattern is regular, symmetrical, Breath sounds are clear bilaterally. GI: Abdomen is flat, non-distended, Bowel sounds present X 4 quads. Abdomen is tender to palpation in epigastric area Reports nausea, Pain is 5 out of 10 on a pain scale. vomiting, vomiting coffee ground emisis. : No signs and/or symptoms were reported regarding the genitourinary system. EENT: No signs and/or symptoms were reported regarding the EENT system. Derm: No signs and/or symptoms reported regarding the dermatologic system. Musculoskeletal: No signs and/or symptoms reported regarding the musculoskeletal system. 03:48 Reassessment: Patient appears in no apparent distress at this time. Patient and/or bm8 family updated on plan of care and expected duration. Pain level reassessed. Patient is alert, oriented x 3, equal unlabored respirations, skin warm/dry/pink. Patient states feeling better. 04:00 Reassessment: ATTEMPTED TO GIVE REPORT AND WAS TOLD THEY DIDN'T KNOW WHERE HE WAS GOING bm8 SO THEY WOULD NEED THIS NURSE TO CALL BACK LATER. 04:23 Reassessment: REPORT TO FERNY MATTA AT [facility]. 8 04:52 Reassessment: Patient appears in no apparent distress at this time. Patient and/or bm8 family updated on plan of care and expected duration. Pain level reassessed. Patient is alert, oriented x 3, equal unlabored respirations, skin warm/dry/pink. Patient states feeling better. Vital Signs: 02:14 BP 139 / 98; Pulse 112; Resp 16; Temp 98.4(O); Pulse Ox 98% on R/A; Weight 104.33 kg jb4 (R); Height 5 ft. 9 in. (R); Pain 5/10; 02:28 BP 171 / 99; Pulse 98; Resp 18; Temp 98.1; Pulse Ox 98% ; Weight 104.33 kg; Height 5 bm8 ft. 9 in. ; Pain 5/10; 03:11 BP 152 / 89; Pulse 95; Resp 17 S; Pulse Ox 98% on R/A; ha1 03:48 BP 146 / 87; Pulse 99; Resp 18; Temp 98.1; Pulse Ox 99% ; Pain 5/10; bm8 04:52 BP 130 / 96; Pulse 82; Resp 18; Temp 98.1; Pulse Ox 100% ; Pain 4/10; bm8 02:28 Body Mass Index 33.96 (104.33 kg, 175.26 cm) bm8 02:14 Pain Scale: Adult jb4 02:28 Pain Scale: Adult bm8 03:48 Pain Scale: Adult bm8 04:52 Pain Scale: Adult bm8 Barnum Coma Score: 02:28 Eye Response: spontaneous(4). Motor Response: obeys commands(6). Verbal Response: bm8 oriented(5). Total: 15. 03:48 Eye Response: spontaneous(4). Motor Response: obeys commands(6). Verbal Response: bm8 oriented(5). Total: 15. 04:52 Eye Response: spontaneous(4). Motor Response: obeys commands(6). Verbal Response: bm8 oriented(5). Total: 15. ED Course: 02:10 Patient arrived in ED. gm2 02:11 Darnell Lopez MD is Attending Physician. sp3 02:16 Triage completed. jb4 02:16 Arm band placed on right wrist. jb4 02:28 Jered Varela, FERNY is Primary Nurse. bm8 02:28 Patient has correct armband on for positive identification. Placed in gown. Bed in low bm8 position. Call light in reach. Side rails up X 1. Provided Education on: Blood Transfusion. Client placed on continuous cardiac and pulse oximetry monitoring. NIBP monitoring applied. environmental monitoring technician on. Pulse ox on. NIBP on. Door closed. Noise minimized. Visitors limited. Warm blanket given. Pillow given. Verbal reassurance given. Head of bed elevated. 02:28 Inserted saline lock: 20 gauge antecubital area, using aseptic technique. Blood vk collected. Flushed with 10 mL NS. 02:28 No provider procedures requiring assistance completed. Patient maintains SpO2 bm8 saturation greater than 95% on room air. 02:44 Type And Screen Sent. vk 02:44 PT-INR Sent. vk 02:44 Ptt, Activated Sent. vk 02:45 CBC with Diff Sent. vk 02:45 CMP Sent. vk 02:45 Lipase Sent. vk 04:23 Initiated transfer with [facility] spoke with Alie Zapien, Patient was accepted to [facility] vk [id number] Kelley, per Alie Zapien Report number [phone], Initiated transport with [facility] spoke with Marnie patient was accepted ETA 15-20 mins \[id number]. 04:52 Patient transferred, IV remains in place. bm8 Administered Medications: 02:44 Drug: Pantoprazole IVP 40 mg IVP once Route: IVP; Site: right antecubital; bm8 03:30 Follow up: Response: No adverse reaction bm8 02:45 Drug: NS 0.9% IV 1000 ml IV at 1 bolus Per protocol; to be given as a bolus over 60 bm8 minutes Route: IV; Rate: 1 bolus; Site: right antecubital; 04:52 Follow up: Response: No adverse reaction; IV Status: Completed infusion; IV Intake: bm8 1000ml Medication: 02:28 VIS not applicable for this client. bm8 Intake: 04:52 IV: 1000ml; Total: 1000ml. bm8 Outcome: 03:53 ER care complete, transfer ordered by . sp3 04:52 Transferred by ground EMS to [facility], Transfer form completed. bm8 X-rays sent w/ patient. 04:52 Condition: stable 04:52 Instructed on follow up and referral plans. the need for transfer, no drinking with medication, no driving heavy equipment, medication usage, Demonstrated understanding of instructions, follow-up care, medications, 04:54 Patient left the ED. bm8 Signatures: Nahun Guerra RN RN jb4 Darnell Lopez MD MD sp3 Patricia García RN RN ha1 Rosenda Raymond gm2 Alexandrea Montague Brad RN RN bm8 Corrections: (The following items were deleted from the chart) 04:23 04:19 Reassessment: ATTEMPTED TO CALL AND GIVE REPORT AGAIN. WAS PLACED ON HOLD FOR TEN bm8 MIN. bm8
--- NOTE | 2024-04-22 03:54 | EDPHYS ---
Physician Documentation [facility] Name: Balta Mtz Age: 43 yrs Sex: Male : 1980 Arrival Date: 04/22/2024 Time: 02:04 Bed 6 Private MD: ED Physician Darnell Lopez HPI: 04/22 03:01 This 43 yrs old Male presents to ER via Ambulatory with complaints of sp3 Abdominal Pain, Chest Tightness, Nausea/Vomiting/Diarrhea, Blurred Vision, Dizziness. 03:01 43-year-old male with history of chronic headaches who takes lots of Excedrin and also sp3 GERD for which he takes Prilosec now presents to the ED with coffee-ground emesis and epigastric pain for the last 48 hours. Patient states that he has had some mild diarrhea with dark stools. He has had at least 3 episodes of coffee-ground emesis today. He denies any other symptoms including back pain, chest pain, shortness of breath, bleeding anywhere else, or any other signs or symptoms on ROS at this time. He has photographs of the emesis.. Historical: - Allergies: 02:16 No Known Allergies; jb4 - PMHx: 02:16 Anxiety; seasonal allergies; jb4 - PSHx: 02:16 back sx; jb4 - Immunization history:: Adult Immunizations unknown. - Infectious Disease History:: Denies. - Social history:: Smoking status: Patient denies any tobacco usage or history of. ROS: 03:01 Constitutional: Negative for fever, chills, and weight loss, Eyes: Negative for injury, sp3 pain, redness, and discharge, Neck: Negative for injury, pain, and swelling, Cardiovascular: Negative for chest pain, palpitations, and edema, Respiratory: Negative for shortness of breath, cough, wheezing, and pleuritic chest pain, Back: Negative for injury and pain, MS/Extremity: Negative for injury and deformity, Skin: Negative for injury, rash, and discoloration, Neuro: Negative for headache, weakness, numbness, tingling, and seizure, Psych: Negative for depression, anxiety, suicide ideation, homicidal ideation, and hallucinations, Allergy/Immunology: Negative for hives, rash, and allergies, Endocrine: Negative for neck swelling, polydipsia, polyuria, polyphagia, and marked weight changes, 03:01 All other systems are negative, Exam: 03:02 Constitutional: This is a well developed, well nourished patient who is awake, alert, sp3 and in no acute distress. Head/Face: Normocephalic, atraumatic. Eyes: Pupils equal round and reactive to light, extra-ocular motions intact. Lids and lashes normal. Conjunctiva and sclera are non-icteric and not injected. Cornea within normal limits. Periorbital areas with no swelling, redness, or edema. ENT: Nares patent. No nasal discharge, no septal abnormalities noted. External auditory canals are clear. Oropharynx with no redness, swelling, or masses, exudates, or evidence of obstruction, uvula midline. Mucous membranes moist. Neck: Trachea midline, no thyromegaly or masses palpated, and no cervical lymphadenopathy. Supple, full range of motion without nuchal rigidity, or vertebral point tenderness. No Meningismus. Chest/axilla: Normal chest wall appearance and motion. Nontender with no deformity. No lesions are appreciated. Cardiovascular: Regular rate and rhythm with a normal S1 and S2. No gallops, murmurs, or rubs. Normal PMI, no JVD. No pulse deficits. Respiratory: Lungs have equal breath sounds bilaterally, clear to auscultation and percussion. No rales, rhonchi or wheezes noted. No increased work of breathing, no retractions or nasal flaring. Back: No spinal tenderness. No costovertebral tenderness. Full range of motion. Skin: Warm, dry with normal turgor. Normal color with no rashes, no lesions, and no evidence of cellulitis. MS/ Extremity: Pulses equal, no cyanosis. Neurovascular intact. Full, normal range of motion. Neuro: Awake and alert, GCS 15, oriented to person, place, time, and situation. Cranial nerves II-XII grossly intact. Motor strength 5/5 in all extremities. Sensory grossly intact. Cerebellar exam normal. Normal gait. 03:02 Abdomen/GI: Patient has pain to palpation epigastrically without peritoneal signs, rebound or guarding. No active emesis in ED., Vital Signs: 02:14 BP 139 / 98; Pulse 112; Resp 16; Temp 98.4(O); Pulse Ox 98% on R/A; Weight 104.33 kg jb4 (R); Height 5 ft. 9 in. (R); Pain 510; 02:28 BP 171 / 99; Pulse 98; Resp 18; Temp 98.1; Pulse Ox 98% ; Weight 104.33 kg; Height 5 bm8 ft. 9 in. ; Pain 5/10; 03:11 BP 152 / 89; Pulse 95; Resp 17 S; Pulse Ox 98% on R/A; ha1 03:48 BP 146 / 87; Pulse 99; Resp 18; Temp 98.1; Pulse Ox 99% ; Pain 5/10; bm8 04:52 BP 130 / 96; Pulse 82; Resp 18; Temp 98.1; Pulse Ox 100% ; Pain 4/10; bm8 02:28 Body Mass Index 33.96 (104.33 kg, 175.26 cm) bm8 02:14 Pain Scale: Adult jb4 02:28 Pain Scale: Adult bm8 03:48 Pain Scale: Adult bm8 04:52 Pain Scale: Adult bm8 Ermelinda Coma Score: 02:28 Eye Response: spontaneous(4). Motor Response: obeys commands(6). Verbal Response: bm8 oriented(5). Total: 15. 03:48 Eye Response: spontaneous(4). Motor Response: obeys commands(6). Verbal Response: bm8 oriented(5). Total: 15. 04:52 Eye Response: spontaneous(4). Motor Response: obeys commands(6). Verbal Response: bm8 oriented(5). Total: 15. MDM: 02:11 Medical Screening Exam initiated sp3 03:02 Data reviewed: vital signs, nurses notes, lab test result(s). ED course: 43-year-old sp3 male with coffee-ground emesis and epigastric pain. Differential diagnosis includes gastric bleed, peptic ulcer bleed, among others. I am not highly suspicious of varices as patient is not a heavy drinker. Protonix IV started and workup pending. No GI coverage here and we will need to transfer to [facility].. 03:52 ED course: Discussed with [facility] hospitalist who is accepted the patient to [facility] observation telemetry with GI consult.. 04/22 02:33 Order name: CBC with Diff; Complete Time: 03:03 sp3 03 02:33 Order name: Type And Screen; Complete Time: 03:49 sp3 04/22 02:33 Order name: PT-INR; Complete Time: 03:03 sp3 04/22 02:33 Order name: Ptt, Activated; Complete Time: 03:03 sp3 04/22 02:33 Order name: IV Saline Lock; Complete Time: 02:35 sp3 04/22 02:33 Order name: Labs collected and sent; Complete Time: 02:35 sp3 04/22 02:33 Order name: NPO; Complete Time: 02:35 sp3 Administered Medications: 02:44 Drug: Pantoprazole IVP 40 mg IVP once Route: IVP; Site: right antecubital; bm8 03:30 Follow up: Response: No adverse reaction bm8 02:45 Drug: NS 0.9% IV 1000 ml IV at 1 bolus Per protocol; to be given as a bolus over 60 bm8 minutes Route: IV; Rate: 1 bolus; Site: right antecubital; 04:52 Follow up: Response: No adverse reaction; IV Status: Completed infusion; IV Intake: bm8 1000ml Disposition Summary: 04/22/24 03:53 Transfer Ordered Notes: Transfer Location: [facility] sp3 Reason: Higher level of care sp3 Condition: Stable sp3 Problem: new sp3 Symptoms: have worsened sp3 Accepting Physician: [facility] hospitalist with GI consult(04/22/24 04:54) bm8 Diagnosis - Upper GI bleed, coffee-ground emesis sp3 Forms: - Medication Reconciliation Form sp3 - SBAR form sp3 Signatures: Dispatcher [employer] EDNahun De Leon, RN RN jb4 Darnell Lopez MD MD sp3 Jered Varela RN RN bm8 Corrections: (The following items were deleted from the chart) 02:34 02:34 CBC+H.LAB.BRZ ordered. EDMS EDMS 02:34 02:34 COMPREHENSIVE METABOLIC PANEL+C.LAB.BRZ ordered. EDMS EDMS 02:34 02:34 LIPASE+C.LAB.BRZ ordered. EDMS EDMS 02:34 02:34 TYPE AND SCREEN+BB.LAB.BRZ ordered. EDMS EDMS 02:34 02:34 PROTIME (+INR)+COAG.LAB.BRZ ordered. EDMS EDMS 02:34 02:34 PTT, ACTIVATED+COAG.LAB.BRZ ordered. EDMS EDMS 04:54 03:53 [facility] hospitalist with GI consult sp3 bm8
[2024-04-22 05:02] VITALS: TEMP 98.1
[2024-04-22 05:07] VITALS: BP 130/96; O2SAT 100
== END 2024-04-22 04:54 | disposition short-term general hospital (02) ==
LOC: ER 02:04
DX: K92.0 Hematemesis (principal)
CPT/HCPCS: 36415; 85025; 85610; 85730; 86850; 86900; 86901; 96361; 96374; 99285; J2470; J7030